=== PATIENT | female | born 1970 | race Caucasian/White ===

== ENCOUNTER 2017-08-09 21:43 | Emergency (ER) | payer OTHER ==
[~2017-08-09] VITALS: Ht 172.7 cm; Wt 100.7 kg
[2017-08-09 21:51] VITALS: Ht 172.7 cm; Wt 100.7 kg
[2017-08-09 23:43] VITALS: BP 132/90
== END 2017-08-09 23:43 | disposition home or self-care (01) ==
LOC: ED 21:43
DX: M54.42 Lumbago with sciatica, left side (principal); N39.0 Urinary tract infection, site not specified; I10 Essential (primary) hypertension
CPT/HCPCS: J1885

== ENCOUNTER 2017-09-07 17:24 | Emergency (ER) | payer OTHER ==
[~2017-09-07] VITALS: Ht 172.7 cm; Wt 102.7 kg
[2017-09-07 17:43] VITALS: Ht 172.7 cm; Wt 102.7 kg
[2017-09-07 21:33] VITALS: BP 139/87
== END 2017-09-07 21:33 | disposition home or self-care (01) ==
LOC: ED 17:24
DX: M54.42 Lumbago with sciatica, left side (principal); I10 Essential (primary) hypertension
CPT/HCPCS: J1885